=== PATIENT | male | born 1960 | race Hispanic/Latino ===

== ENCOUNTER → 2023-10-14 | Outpatient (REF) | payer OTHER ==
[~2023-10-14] MED LIST: AMITRIPTYLINE100 MG PO; ASPIRIN CHEW81 MG PO; FLOMAX0.4 MG PO; IOPAMIDOL 370 MG/ML 100 ML INFUS..BTL INJ ONE; OMEPRAZOLE40 MG PO; SIMVASTATIN40 MG PO; ZESTRIL10 MG PO; [UNRECOGNIZED DRUG - OTHER] PO
[2023-10-14 12:46] LABS: CREATININE, SERUM 0.82 mg/dL (0.72-1.25)
== END ==
LOC: CT 11:47
PROVIDERS: ATTEND Nurse Practitioner
DX: K76.89 Other specified diseases of liver (principal)
CPT/HCPCS: 36415; 74178; 82565; 84520; Q9967